=== PATIENT | female | born 1990 | race Hispanic/Latino ===

== ENCOUNTER 2018-03-07 17:32 | Emergency (ER) | payer OTHER ==
[2018-03-07 18:07] VITALS: O2SAT 99
[2018-03-07] MEDS ORDERED: Sodium Chloride 0.9% 1,000 ML IV STA (18:37)
[2018-03-07] MEDS ORDERED: Iohexol 240 (50 ml) PO STA (18:37)
[2018-03-07 19:06] LABS: BASO % 0.5 % (0.0-2.0); EOS # 0.1 K/uL (0.0-0.7); EOS % 2.1 % (0.0-4.0); HEMOGLOBIN 13.3 g/dL (12.0-16.0); LYMPH # 1.5 K/uL (1.0-4.3); LYMPH % 32.1 % (20.0-40.0); MEAN CELL VOLUME 89.4 fl (81.0-99.0); MEAN CORPUSCULAR HEMOGLOBIN 30.5 pg (27.0-31.0); MEAN CORPUSCULAR HGB CONC 34.2 g/dL (33.0-37.0); MEAN PLATELET VOLUME 8.3 fl (7.2-11.7); MONO # 0.3 K/uL (0.0-0.8); MONO % 6.3 % (0.0-10.0); NEUT # 2.7 K/uL (1.8-7.0); NRBC % 0.1 % (0.0-0.0); RBC 4.34 Mil/uL (3.80-5.20); RED CELL DISTRIBUTION WIDTH 13.6 % (11.5-14.5); WHITE BLOOD COUNT 4.6 K/uL (4.8-10.8)
--- NOTE | 2018-03-07 19:10 | ED PDOC ---
HPI: Abdomen Time Seen by Provider: 03/07/18 18:11 Chief Complaint (Nursing): Abdominal Pain Chief Complaint (Provider): Abdominal Pain History Per: Patient History/Exam Limitations: no limitations Additional Complaint(s): 27 y/o female with no significant medical history presents to the ED complaining of left lower quadrant pain for 3 days. Symptoms have been getting worse since onset and patient describes pain as sharp with radiation to her back. Patient denies taking any medication for symptoms. Reports that for the past x2 months she has been having abnormal bowel movements where she feels like she still has to go after but denies constipation, diarrhea or black or bloody stool. She reports that those symptoms have not changed over the past 3 days and that she has been referred to GI already for this. Denies urinary symptoms or vaginal complaints. PMD Edwar Yang Abnormal Vaginal Bleeding: No Last Menstral Period: 11 days ago Past Medical History Reviewed: Historical Data, Nursing Documentation, Vital Signs Vital Signs: Last Vital Signs Temp 98.1 F 03/07/18 18:06 Pulse 92 H 03/07/18 18:06 Resp 17 03/07/18 18:06 BP 138/97 H 03/07/18 18:06 Pulse Ox 99 03/07/18 18:06 - Medical History PMH: Migraine, Seizures (as a child from age [age]) - Surgical History Surgical History: No Surg Hx - Family History Family History: States: Unknown Family Hx, Diabetes - Social History Current smoker - smoking cessation education provided: No Alcohol: None - Home Medications Home Medications: Ambulatory Orders Medication Instructions Recorded Acetaminophen/Butalbital/Caf 1 tab PO Q6 PRN #8 tab 07/20/14 [Fioricet 325 mg-50 mg-40 mg] Montelukast [Singulair] 10 mg PO DAILY 07/20/14 RX: Ibuprofen [Motrin Tab] 600 mg PO Q8 PRN #30 tab 03/07/18 - Allergies Allergies/Adverse Reactions: Allergies Allergy/AdvReac Type Severity Reaction Status Date / Time No Known Allergies Allergy Verified 07/20/14 11:19 Review of Systems ROS Statement: Except As Marked, All Systems Reviewed And Found Negative (as per HPI otherwise negative) Gastrointestinal: Positive for: Abdominal Pain. Negative for: Diarrhea, Constipation, Melena, Hematochezia Musculoskeletal: Positive for: Back Pain Physical Exam - Reviewed Nursing Documentation Reviewed: Yes Vital Signs Reviewed: Yes - Physical Exam Appears: Positive for: Non-toxic, No Acute Distress Head Exam: Positive for: ATRAUMATIC, NORMOCEPHALIC Skin: Positive for: Warm, Dry Eye Exam: Positive for: EOMI, PERRL ENT: Negative for: Pharyngeal Erythema, Tonsillar Exudate Neck: Positive for: Painless ROM, Supple Cardiovascular/Chest: Positive for: Regular Rate, Rhythm. Negative for: Murmur Respiratory: Positive for: Normal Breath Sounds. Negative for: Respiratory Distress Gastrointestinal/Abdominal: Positive for: Soft, Tenderness (tenderness to palpation of LLQ/Pelvic Area). Negative for: Mass, Distended, Guarding, Rebound, Other (Banda's Point, McBurney's Sign Tenderness) Back: Positive for: Normal Inspection. Negative for: L CVA Tenderness, R CVA Tenderness Extremity: Positive for: Normal ROM. Negative for: Deformity Lymphatic: Negative for: Adenopathy Neurologic/Psych: Positive for: Alert. Negative for: Motor/Sensory Deficits - Laboratory Results Result Diagrams: 03/07/18 18:55 03/07/18 18:55 - ECG O2 Sat by Pulse Oximetry: 99 (RA) Pulse Ox Interpretation: Normal Medical Decision Making Medical Decision Making: Time: 18:37 Initial Impression: LLQ pain Differential diagnosis included but not limited to ovarian cyst or torsion, cystitis, UTI, diverticulitis, colitis Initial Plan: * EKG * CMP * ED Urine * CBC w/ diff * IV Fluids * Omnipaque 50 ml * US Pelvis * US Transvag No clinically significant lab abnormalities. EXAM: US Pelvis, Complete Transvaginal and Transabdominal COMPARISON: None provided. CLINICAL HISTORY: Left pelvic pain for 2 days. TECHNIQUE: Transvaginal and transabdominal pelvic ultrasound (complete) with image documentation. FINDINGS: ENDOMETRIUM: Normal thickness. UTERUS/CERVIX: The uterus appears within normal limits. No uterine fibroid or other mass evident. RIGHT OVARY: Normal Doppler flow. Multiple ovarian follicles. LEFT OVARY: Normal Doppler flow. The left ovarian simple cyst measuring 2 x 0.9 x 2 cm. FREE FLUID: No free fluid. IMPRESSION: No uterine mass. Right ovarian follicles. Small simple cyst left ovary measuring 2 x 0.9 x 2 cm. Electronically signed on Mar 07, 2018 7:40:13 PM EST by: Jeff Patterson M.D., Certified by [facility], Diagnostic Radiology DW pt findings. Pt is midcycle and pain is c/w findings of cyst on exam, and she has no other findings for acute GI pathology. Presentation most likely due to o varian cyst. Pt stable for discharge with [facility] followup but also encouraged importance to continue her planned GI workup as well. All questions/concerns answered/addressed. Scribe Attestation: Documented by Emmanuel Campo acting as a scribe for Erika Leonard MD. Provider Scribe Attestation: All medical record entries made by the Scribe were at my direction and person ally dictated by me. I have reviewed the chart and agree that the record accurately reflects my personal performance of the history, physical exam, medical decision making, and the department course for this patient. I have also personally directed, reviewed, and agree with the discharge instructions and disposition. Disposition - Clinical Impression Clinical Impression: Ovarian cyst Counseled Patient/Family Regarding: Studies Performed, Diagnosis, Need For Followup, Rx Given - Disposition Referrals: Alan Castrejon DO [Staff Provider] - (FOLLOW UP WITH YOUR MAT CLEANING MACHINE OPERATOR IN ABOUT A WEEK FOR REEVALUATUION) Disposition: Routine/Home Disposition Time: 19:55 Condition: STABLE Additional Instructions: RETURN TO ER IMMEDIATELY FOR SEVERE PAIN, FAINTING OR NEAR FAINTING, FEVER OR VOMITING OR ANY OTHER WORRISOME SYMPTOMS. FOLLOW UP WITH MAT CLEANING MACHINE OPERATOR IN A WEEK. FOLLOWUP WITH THE COST RECORDER SCHEDULED. Prescriptions: RX: Ibuprofen [Motrin Tab] 600 mg PO Q8 PRN #30 tab PRN Reason: Pain, Moderate (4-7) Instructions: Ovarian Cyst (DC)
[2018-03-07 19:24] LABS: ALB/GLOB RATIO 1.4 (1.0-2.1); ALBUMIN 4.5 g/dL (3.5-5.0); ALT/SGPT 25 U/L (9-52); AST/SGOT 26 U/L (14-36); BLOOD UREA NITROGEN 16 mg/dl (7-17); CALCIUM 9.3 mg/dL (8.4-10.2); GFR NON-AFRICAN AMERICAN > 60
[2018-03-08 00:22] VITALS: BP 119/70; PULSE 77; RESP 18; TEMP 97.7
--- NOTE | 2018-03-08 11:55 | US ---
Date of service: 03/07/2018 HISTORY: LEFT pelvic pain COMPARISON: None available. TECHNIQUE: Transvaginal ultrasound examination of the pelvis was performed. FINDINGS: UTERUS: Measures 7.9 x 3.4 x 5.1 cm. Normal in size and appearance. No fibroid or other mass lesion seen. ENDOMETRIUM: Measures 10.5 mm in diameter. Unremarkable. CERVIX: No cervical abnormality identified. RIGHT OVARY: Measures 2.6 x 1.8 x 2.6 cm. No solid mass. Normal flow. LEFT OVARY: Measures 3.1 x 1.7 x 2.9 cm. No solid mass. Normal flow. Anechoic simple cyst noted at the left adnexa measures 2.1 x 1 x 2 centimeter. FREE FLUID: No significant free fluid noted. OTHER FINDINGS: None. IMPRESSION: 2.1 centimeters cyst noted at the left adnexa. Otherwise grossly unremarkable study. Preliminary report contains concordant findings was submitted by [facility] Radiology.
== END 2018-03-07 20:15 | disposition home or self-care (01) ==
LOC: H.ER 17:32
DX: N83.202 Unspecified ovarian cyst, left side (principal)
CPT/HCPCS: 76830; 80053; 81025; 85025; 96360; 99284; J7030